=== PATIENT | female | born 2000 | race African-American/Black ===

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

== ENCOUNTER 2018-03-22 14:25 | Emergency (ER) | payer MEDICAID ==
[~2018-03-22] VITALS: Ht 167.6 cm; Wt 90.0 kg
[2018-03-22] MEDS ORDERED: FERR220S12 PO (15:15)
[2018-03-22] MEDS ORDERED: IBUPROFEN 600MG TABLET PO ONE (18:30)
[2018-03-22 18:50] VITALS: BP 120/69
== END 2018-03-22 18:51 | disposition home or self-care (01) ==
LOC: ER 16:02
DX: M25.572 Pain in left ankle and joints of left foot (principal); J45.909 Unspecified asthma, uncomplicated
CPT/HCPCS: 73610; 99284

== ENCOUNTER 2022-07-15 02:14 | Emergency (ER) | payer MEDICAID ==
[~2022-07-15] VITALS: Ht 167.6 cm; Wt 66.0 kg
[~2022-07-15 02:14] MED LIST changes: +FERR220S12 PO
[2022-07-15 02:36] VITALS: BP 142/104
== END 2022-07-15 04:54 | disposition left against medical advice (07) ==
LOC: ER 02:14
DX: Z53.21 Procedure and treatment not carried out due to patient leaving prior to being seen by health care provider (principal)

== ENCOUNTER 2023-03-18 19:18 | Emergency (ER) | payer MEDICAID ==
[~2023-03-18] VITALS: Ht 167.6 cm; Wt 109.0 kg
[2023-03-18 19:59] VITALS: BP 125/99
== END 2023-03-18 22:23 | disposition home or self-care (01) ==
LOC: EDSEX 19:18 → ER 19:18
DX: S41.112D Laceration without foreign body of left upper arm, subsequent encounter (principal); R20.0 Anesthesia of skin; J45.909 Unspecified asthma, uncomplicated; Z88.1 Allergy status to other antibiotic agents; Z88.8 Allergy status to other drugs, medicaments and biological substances; X58.XXXD Exposure to other specified factors, subsequent encounter
CPT/HCPCS: 99281; Z7610